=== PATIENT | female | born 1980 | race African-American/Black ===

== ENCOUNTER 2019-11-21 20:50 | Inpatient (IN) | payer MEDICAID ==
[~2019-11-21] VITALS: Ht 154.9 cm; Wt 76.2 kg
[2019-11-21 21:44] LABS: CLARITY URINE CLOUDY (CLEAR); COLOR URINE YELLOW (YELLOW); KETONES URINE 3+ (NEGATIVE); LEUKOCYTE ESTERASE URINE NEGATIVE (NEGATIVE); NITRITE URINE NEGATIVE (NEGATIVE); OCCULT BLOOD URINE 3+ (NEGATIVE); PH URINE 5.5 (4.5-8.0); PROTEIN URINE 1+ (NEGATIVE); SPECIFIC GRAVITY URINE 1.029 (1.005-1.030); UROBILINOGEN URINE 0.2 E.U./dL (0.2-1.0)
[2019-11-22] VITALS (7 sets, daily range): BP systolic 105–117; BP diastolic 34–63
[2019-11-22] MEDS ORDERED: SODIUM CHLORIDE 0.9% 1,000 ML IV ONE (00:45)
[2019-11-22] MEDS ORDERED: KETOROLAC 30MG/ML VIAL IV ONE (00:45)
[2019-11-22 01:25] LABS: BASOPHILS % 0.4 % (0.0-2.0); EOSINOPHILS % 0.8 % (0.0-5.0); HEMATOCRIT. 43.9 % (36.0-48.0); HEMOGLOBIN. 15.2 g/dL (12.0-16.0); LYMPHOCYTES % 15.5 % (20.0-50.0); MEAN CORPUSCULAR HEMOGLOBIN 31.7 pg (28.0-32.0); MEAN CORPUSCULAR VOLUME 91.9 fL (81.0-99.0); NEUTROPHILS % 79.3 % (40.0-76.0); PLATELET 266 x1000/uL (130-400); RED BLOOD CELL COUNT 4.77 mill/uL (4.2-5.4); RED CELL DISTRIBUTION WIDTH 13.5 % (11.6-14.6)
[2019-11-22 01:31] LABS: CHLORIDE 107 mEq/L (98-107)
[2019-11-22] MEDS ORDERED: IOHEXOL-300 100 ML BOTTLE ONE (03:03)
[2019-11-22] MEDS ORDERED: POTASSIUM CHLORIDE INJ 40 MEQ in DEXT 5% WATER 500 ML IV NR (03:30)
[2019-11-22] MEDS ORDERED: SODIUM CHLORIDE 0.9% 1,000 ML IV NR (03:30)
[2019-11-22] MEDS ORDERED: MORPHINE SULFATE 2 MG/ML CPJ (NOT FOR IM USE) IV PRN (08:15)
[2019-11-22] MEDS ORDERED: ONDANSETRON HCL 4MG/2ML INJ IV PRN (08:15)
[2019-11-22] MEDS: DEXT 5%/0.45% NACL KCL 20MEQ/L 1,000 ML IV SCH ×2 (10:00→18:00)
[2019-11-22] MEDS ORDERED: BISACODYL 10MG SUPP PR PRN (15:30)
[2019-11-23] VITALS: BP 103/58
[2019-11-23] MEDS: DEXT 5%/0.45% NACL KCL 20MEQ/L 1,000 ML IV SCH (03:30)
[2019-11-23 04:00] VITALS: BP 99/57
[2019-11-23 08:00] VITALS: BP 119/66
[2019-11-23 12:00] VITALS: BP 133/78
[2019-11-23 15:23] VITALS: BP 133/78
== END 2019-11-23 15:48 | disposition home or self-care (01) | DRG 254 ==
LOC: ER 20:50 → 6EST 11-22 03:22 → ENRESERV 11-22 05:37
PROVIDERS: ADMIT Internal Medicine; ATTEND Internal Medicine
DX: K43.6 Other and unspecified ventral hernia with obstruction, without gangrene (principal); K57.92 Diverticulitis of intestine, part unspecified, without perforation or abscess without bleeding; E66.9 Obesity, unspecified; F17.210 Nicotine dependence, cigarettes, uncomplicated; J45.909 Unspecified asthma, uncomplicated; Z98.51 Tubal ligation status; Z91.040 Latex allergy status; Z91.010 Allergy to peanuts; Z91.018 Allergy to other foods; Z71.3 Dietary counseling and surveillance; Z68.37 Body mass index [BMI] 37.0-37.9, adult
CPT/HCPCS: 36415; 74177; 80053; 81003; 85025; 99291; J1885; J2270; J3480; J7030; J7060; Q9967